=== PATIENT | male | born 1990 | race American Indian/Alaskan Native ===

== ENCOUNTER 2021-09-09 20:06 | Emergency (ER) | payer OTHER ==
[~2021-09-09] VITALS: Ht 177.8 cm; Wt 77.1 kg
[2021-09-09] MEDS ORDERED: IBU-200200 MG PO (20:31)
[2021-09-09] MEDS ORDERED: PENICILLIN V P500 MG PO (22:02)
== END 2021-09-09 22:30 | disposition home or self-care (01) ==
LOC: ED 20:06
DX: S02.5XXA Fracture of tooth (traumatic), initial encounter for closed fracture (principal); S01.511A Laceration without foreign body of lip, initial encounter; Y04.8XXA Assault by other bodily force, initial encounter
CPT/HCPCS: 70450; 70486; 71046; 72125; 73000; 99284-25

== ENCOUNTER 2022-06-23 16:59 | Emergency (ER) | payer OTHER ==
[~2022-06-23] VITALS: Ht 177.8 cm; Wt 74.9 kg
[~2022-06-23 16:59] MED LIST: IBU-200200 MG PO; PENICILLIN V P500 MG PO
[2022-06-23] MEDS ORDERED: DOXYCYCLINE HY100 MG PO (18:17)
== END 2022-06-23 18:28 | disposition home or self-care (01) ==
LOC: ED 16:59
PROC: 0H96XZZ Drainage of Back Skin, External Approach (ICD-10-PCS; principal; 2022-06-23)
DX: L72.3 Sebaceous cyst (principal); L02.212 Cutaneous abscess of back [any part, except buttock and flank]
CPT/HCPCS: 10060; 99282-25; A9270